=== PATIENT | female | born 2000 | race Caucasian/White ===

== ENCOUNTER 2021-09-16 11:51 | Inpatient (IN) ==
[2021-09-16 13:45] LABS: Mean Platelet Volume 9.7 fL (9.4-12.4); Red Cell Distribution Width 12.5 % (11.5-14.5)
[2021-09-16 13:47] LABS: Hematocrit 34.7 % (35.3-44.9); Hemoglobin 11.4 g/dL (11.5-15.4); Mean Corpuscular HGB Conc 32.9 g/dL (31.6-35.5); Mean Corpuscular Hemoglobin 29.1 pg (28.0-33.3); Mean Corpuscular Volume 88.5 fL (83.0-100.0); Platelet Count 330 K/mcL (140-400); Red Blood Count 3.92 M/mcL (3.82-4.97); White Blood Count 26.1 K/mcL (4.3-11.1)
[2021-09-16 14:02] LABS: BUN/Creatinine Ratio 7 (6-26); Blood Urea Nitrogen 7 mg/dL (6-20); Calcium 8.9 mg/dL (8.6-10.3); Carbon Dioxide 25 mEq/L (23-29); Chloride 99 mEq/L (98-107); Glucose 101 mg/dL (70-105); Osmolality,Calculated 274 (280-300); Potassium 3.5 mEq/L (3.5-5.1); Sodium 133 mEq/L (136-145); eGFR For African Americans > 60 (> 60); eGFR For Non-African Americans > 60 (> 60)
[2021-09-16 14:13] LABS: Bilirubin,Urine Negative (Negative); Blood,Urine Moderate (Negative); Clarity,Urine Ex.Turbid (Clear); Color,Urine Yellow (Yellow); Glucose,Urine (UA) Normal (Normal); Ketones,Urine Trace mg/dL (Negative); Leukocyte Esterase,Urine Large (Negative); Mucus,Urine Many per lpf (None-Few); Nitrite,Urine Positive (Negative); Protein,Urine >=300 mg/dL (Neg-Trace); Squamous Epithelial Cell,Urine Moderate per hpf (None-Few); Urobilinogen,Urine >=8.0 mg/dL (Normal); WBC,Urine TNTC per hpf (0-3)
[2021-09-16 14:50] LABS: Lymphocytes # 3.7 K/mcL (0.6-4.6); Monocytes # 3.1 K/mcL (0.0-1.3); Neutrophils # 19.3 K/mcL (1.6-8.9)
[2021-09-16 14:51] LABS: Platelet Estimate Normal (Normal); Toxic Granulation Present (Not Present)
[2021-09-16] MEDS ORDERED: Iopamidol - 370 500 ML MLS IVP ONE (17:36)
[2021-09-16] MEDS ORDERED: cefTRIAXone 2,000 MG in 0.9 % Sodium Chloride Mini Bag 100 ML IVPB ONE (17:50)
[2021-09-16] MEDS ORDERED: 0.9 % Sodium Chloride 1,000 ML IV ONE (17:50)
[2021-09-16] MEDS ORDERED: Morphine Sulfate 2 MG/ML SYRINGE IVP ONE ×2 (17:52→21:14)
[2021-09-16] MEDS ORDERED: Ondansetron 4 MG/2 ML VIAL IVP STA (17:52)
[2021-09-16] MEDS ORDERED: Ketorolac 30 MG/ML VIAL IVP ONE (17:52)
[2021-09-16 18:16] LABS: Lipase < 3 Units/L (11-82)
[2021-09-16] MEDS ORDERED: Ondansetron ODT 4 MG TAB.RAPDIS SL PRN (21:22)
[2021-09-16] MEDS ORDERED: Melatonin 3 MG TABLET PO PRN (21:22)
[2021-09-16] MEDS ORDERED: *HR* HYDROcodone/Acet 5/325 mg TABLET PO PRN (21:22)
[2021-09-16] MEDS ORDERED: Naloxone 0.4 MG/ML INJ IVP PRN (21:22)
[2021-09-16] MEDS: 0.9 % Sodium Chloride 1,000 ML IVC SCH (23:07)
[2021-09-16] MEDS: *HR* OxyCODONE Immed Rel 5 MG TABLET PO PRN (23:07)
[2021-09-16] MEDS: Nicotine 21 MG PATCH.TD24 TD SCH (23:12)
[2021-09-17 01:43] LABS: Hematocrit 30.1 % (35.3-44.9); Mean Corpuscular HGB Conc 33.2 g/dL (31.6-35.5); Mean Corpuscular Hemoglobin 29.7 pg (28.0-33.3); Mean Corpuscular Volume 89.3 fL (83.0-100.0); Mean Platelet Volume 9.8 fL (9.4-12.4); Platelet Count 302 K/mcL (140-400); Red Blood Count 3.37 M/mcL (3.82-4.97); Red Cell Distribution Width 12.7 % (11.5-14.5); White Blood Count 20.6 K/mcL (4.3-11.1)
[2021-09-17 01:59] LABS: BUN/Creatinine Ratio 9 (6-26); Blood Urea Nitrogen 8 mg/dL (6-20); Calcium 8.2 mg/dL (8.6-10.3); Carbon Dioxide 26 mEq/L (23-29); Chloride 101 mEq/L (98-107); Glucose 112 mg/dL (70-105); Osmolality,Calculated 277 (280-300); Potassium 3.4 mEq/L (3.5-5.1); Sodium 134 mEq/L (136-145); eGFR For African Americans > 60 (> 60); eGFR For Non-African Americans > 60 (> 60)
[2021-09-17] MEDS: *HR* OxyCODONE Immed Rel 5 MG TABLET PO PRN (05:44)
[2021-09-17] MEDS: Acetaminophen 325 MG TABLET PO PRN ×2 (08:08→22:07)
[2021-09-17] MEDS: cefTRIAXone 2,000 MG in 0.9 % Sodium Chloride 20 ML IVP SCH (08:08)
[2021-09-17] MEDS ORDERED: Ketorolac 30 MG/ML VIAL IVP ONE (12:30)
[2021-09-17] MEDS ORDERED: 0.9 % Sodium Chloride w KCl 40 MEQ/1,000 ML MLS IVC SCH (12:45)
[2021-09-17] MEDS: 0.9 % Sodium Chloride 1,000 ML IVC SCH (13:26)
[2021-09-17] MEDS: Ketorolac 30 MG/ML VIAL IVP SCH (17:53)
[2021-09-17] MEDS: Nicotine 21 MG PATCH.TD24 TD SCH (21:23)
[2021-09-18] MEDS: Ketorolac 30 MG/ML VIAL IVP SCH ×2 (00:22→05:57)
[2021-09-18] MEDS: Acetaminophen 325 MG TABLET PO PRN (05:58)
[2021-09-18 06:37] LABS: Hematocrit 29.8 % (35.3-44.9); Hemoglobin 9.5 g/dL (11.5-15.4); Mean Corpuscular HGB Conc 31.9 g/dL (31.6-35.5); Mean Corpuscular Hemoglobin 29.3 pg (28.0-33.3); Mean Platelet Volume 9.7 fL (9.4-12.4); Platelet Count 283 K/mcL (140-400); Red Blood Count 3.24 M/mcL (3.82-4.97); Red Cell Distribution Width 12.9 % (11.5-14.5)
[2021-09-18 06:56] LABS: BUN/Creatinine Ratio 12 (6-26); Blood Urea Nitrogen 10 mg/dL (6-20); Calcium 8.1 mg/dL (8.6-10.3); Carbon Dioxide 28 mEq/L (23-29); Chloride 104 mEq/L (98-107); Glucose 91 mg/dL (70-105); Osmolality,Calculated 281 (280-300); Phosphorous 4.8 mg/dL (2.7-4.5); Potassium 4.1 mEq/L (3.5-5.1); Sodium 136 mEq/L (136-145); eGFR For African Americans > 60 (> 60); eGFR For Non-African Americans > 60 (> 60)
[2021-09-18] MEDS: cefTRIAXone 2,000 MG in 0.9 % Sodium Chloride 20 ML IVP SCH (07:31)
[2021-09-18 07:33] VITALS: BP 122/85; PULSE 61; TEMP 98.4; O2SAT 96
== END 2021-09-18 09:15 | disposition home or self-care (01) | DRG 720 ==
LOC: 3BNU 11:51 → EMEROOARM 11:51 → SUATTDRO 21:29 → 3BNU 22:07
PROVIDERS: ADMIT Internal Medicine; ATTEND Internal Medicine